=== PATIENT | male | born 1985 | race Caucasian/White ===

== ENCOUNTER 2017-04-04 01:50 | Emergency (ER) | payer SELFPAY ==
[~2017-04-04] VITALS: Ht 172.7 cm; Wt 98.0 kg
[2017-04-04 01:51] VITALS: BP 147/111; PULSE 92; RESP 16; TEMP 98.1; O2SAT 96
[2017-04-04 03:03] LABS: AUTOMATED NEUTROPHIL # 8.1 TH/MM3 (1.8-7.7); BASOPHIL % 0.4 % (0.0-2.0); EOSINOPHIL # 0.2 TH/MM3 (0-0.4); EOSINOPHIL % 1.5 % (0.0-4.0); HEMATOCRIT 44.3 % (39.0-51.0); HEMO FLAGS DIFF FINAL; LYMPH % 27.4 % (9.0-44.0); LYMPHOCYTE # 3.3 TH/MM3 (1.0-4.8); MEAN CELL VOLUME 88.3 FL (80.0-100.0); MEAN CORPUSCULAR HGB CONC 33.9 % (32.0-36.0); MONO % 4.6 % (0.0-8.0); NEUT % 66.1 % (16.0-70.0); PLATELET COUNT 279 TH/MM3 (150-450); RED BLOOD COUNT 5.02 MIL/MM3 (4.50-5.90); RED CELL DISTRIBUTION WIDTH 13.3 % (11.6-17.2); WHITE BLOOD COUNT 12.2 TH/MM3 (4.0-11.0)
[2017-04-04 03:14] LABS: AMPHETAMINE, URINE NEG (NEG); BARBITURATES, URINE NEG (NEG); COCAINE, URINE NEG (NEG)
[2017-04-04 03:19] LABS: ALT (GPT) 40 U/L (12-78); ANION GAP 8 MEQ/L (5-15); AST (GOT) 13 U/L (15-37); BICARBONATE 27.2 MEQ/L (21.0-32.0); BLOOD UREA NITROGEN 7 MG/DL (7-18); CHLORIDE 105 MEQ/L (98-107); GLOMERULAR FILTRATION RATE 147 ML/MIN (>89); POTASSIUM 3.9 MEQ/L (3.5-5.1); SODIUM (NA) 140 MEQ/L (136-145)
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
[2017-04-04 03:22] LABS: ALKALINE PHOSPHATASE 118 U/L (45-117); TOTAL BILIRUBIN ADULT 0.2 MG/DL (0.2-1.0)
[2017-04-04 08:12] VITALS: BP 142/102; PULSE 93; RESP 16; O2SAT 97
[2017-04-04] MEDS ORDERED: ZYPR10TA PO (08:15)
[2017-04-04] MEDS ORDERED: CELE10TA PO (08:17)
[2017-04-04] MEDS ORDERED: GABA300C5 PO (08:17)
[2017-04-04 13:52] VITALS: BP 144/89; PULSE 88; RESP 14; O2SAT 100
[2017-04-04 15:53] VITALS: BP 150/77; PULSE 95; RESP 18; O2SAT 99
[2017-04-04] MEDS ORDERED: ACETAMINOPHEN 325 MG TAB PO ONE (20:45)
[2017-04-04 22:11] VITALS: BP 138/63; PULSE 63; RESP 20; TEMP 98.4; O2SAT 95
[2017-04-05 02:02] VITALS: BP 152/89; PULSE 60; RESP 18; O2SAT 98
[2017-04-05 06:06] VITALS: BP 151/88; PULSE 61; RESP 20; TEMP 98.4; O2SAT 95
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
== END 2017-04-05 09:40 | disposition home or self-care (01) ==
LOC: NEPD 01:50 → NEPJ 04-05 09:40
DX: F20.9 Schizophrenia, unspecified (principal); F12.10 Cannabis abuse, uncomplicated; F10.10 Alcohol abuse, uncomplicated; Y90.4 Blood alcohol level of 80-99 mg/100 ml; Z59.0 Homelessness; F17.290 Nicotine dependence, other tobacco product, uncomplicated
CPT/HCPCS: 80053; 80307; 85025; 99284